=== PATIENT | female | born 1955 | race Caucasian/White ===

== ENCOUNTER 2016-11-26 08:15 | Emergency (ER) | payer OTHER ==
[~2016-11-26] VITALS: Ht 160 cm; Wt 100.4 kg
[2016-11-26 09:18] LABS: EOSINOPHIL (%) 0.4 % (0-5); EOSINOPHIL COUNT 0.1 K/uL (0-0.3); HEMATOCRIT 33.6 % (36.0-46.0); IMMATURE GRANULOCYTE (%) 1.2 % (0.0-0.7); IMMATURE GRANULOCYTE COUNT 0.2 K/uL; LYMPHOCYTE COUNT 1.2 K/uL (1.0-2.8); MCH 30.3 PG (29.0-34.0); MCHC 32.7 G/DL (30.0-36.0); MCV 92.6 FL (83-99); MEAN PLAT.VOLUME 9.3 uM^3 (9.5-12.4); MONOCYTE (%) 7.5 % (3-12); MONOCYTE COUNT 1.1 K/uL (0-0.8); NEUTROPHIL (%) 82.8 % (45-76); PLATELET COUNT 250 K/uL (156-360); RBC DIS.WIDTH-CV 12.4 % (11.8-14.6); RBC DIS.WIDTH-SD 42.4 % (39-53); RED BLOOD COUNT 3.63 M/uL (3.80-5.20); WHITE BLOOD COUNT 14.5 K/uL (4.1-10.2)
[2016-11-26 09:28] LABS: CHLORIDE 104 mEq/L (99-109); POTASSIUM 3.2 mEq/L (3.7-5.4); SODIUM 140 mEq/L (136-147)
[2016-11-26 09:30] LABS: GLUCOSE 144 mg/dL (70-99)
[2016-11-26 09:31] LABS: ANION GAP 16 MEQ/L (2-14)
[2016-11-26 09:34] LABS: UREA NITROGEN (BUN) 5 mg/dL (9-23)
[2016-11-26 09:35] LABS: GFR ESTIMATE (CALCULATED) > 59 mL/min/
[2016-11-26 11:48] LABS: ADD MIUA? YES; BILIRUBIN NEGATIVE; BLOOD MODERATE; COLOR YELLOW ((YELLOW)); GLUCOSE (STRIP) NEGATIVE; KETONES 80; LEUKOCYTES TRACE; NITRITE NEGATIVE; PROTEIN (STRIP) NEGATIVE; SPECIFIC GRAVITY 1.012 (1.000-1.030); UROBILINOGEN 0.2 MG/DL (0.2-1.0)
[2016-11-26 12:01] LABS: BACTERIA 1+ /HPF; EPITHELIAL CELLS RARE /HPF; MUCUS TRACE /LPF; RED BLOOD CELLS 0-5 /HPF (0-5); UCUL ADDED? YES
[2016-11-26 13:10] LABS: POINT-OF-CARE METER ID UU13113747; POINT-OF-CARE USER ID STWBNM
[2016-11-26] MEDS ORDERED: TOPROL XL100 MG PO (15:12)
[2016-11-26 18:26] VITALS: BP 144/78
== END 2016-11-26 18:40 ==
LOC: EME 08:15
PROVIDERS: Emergency Medicine
DX: J95.09 Other tracheostomy complication (principal); N39.0 Urinary tract infection, site not specified; I48.91 Unspecified atrial fibrillation; R50.9 Fever, unspecified; Z43.0 Encounter for attention to tracheostomy; Z99.11 Dependence on respirator [ventilator] status; Z96.0 Presence of urogenital implants
CPT/HCPCS: 71010; 80048; 81003; 82948; 83605; 85025; 87040; 87077; 87106; 93005; 99281; 99285; J0696; J3370; J7030; J7050

== ENCOUNTER 2016-12-27 12:11 | Emergency (ER) | payer OTHER ==
[~2016-12-27] VITALS: Ht 162.6 cm; Wt 88.0 kg
[~2016-12-27 12:11] MED LIST: TOPROL XL100 MG PO
[2016-12-27 16:17] VITALS: BP 115/85
== END 2016-12-27 16:18 ==
LOC: EME → EDBD 12:11 → EME 12:11
DX: Z43.0 Encounter for attention to tracheostomy (principal); Z46.89 Encounter for fitting and adjustment of other specified devices; Z87.891 Personal history of nicotine dependence
CPT/HCPCS: 94799; 99281; 99285